=== PATIENT | male | born 1985 | race Caucasian/White ===

== ENCOUNTER 2018-02-04 12:00 | Observation (INO) | payer MEDICAID, SELFPAY ==
[2018-02-04 12:40] VITALS: BP 141/87; PULSE 56; RESP 16; TEMP 36.4; O2SAT 98
[2018-02-04 12:43] VITALS: BMI 25.4
[2018-02-04 12:44] VITALS: BMI 25.4
[2018-02-04 12:47] VITALS: BP 141/87; PULSE 56; RESP 16; TEMP 36.4
--- NOTE | 2018-02-04 12:59 | PCM.HP.STD ---
Problem List (1) Opiate withdrawal Status: Acute History of Present Illness Date of Admission: 02/04/18 Chief Complaint: abdominal cramps, diarrhea, restless legs. seeking treatment for heroin withdrawal. The patient is a 32 year old M who injects heroin. Last injection was at 4 PM on the . Since then, patient has been experiencing abdominal cramps, diarrhea, diaphoresis, restless legs. Patient presented Via [facility] for treatment for heroin withdrawal. Patient had an intake CINA score of 16. Patient being admitted to the [facility] medical stabilization program for acute opiate withdrawal. [] Past Medical History Allergies No Known Allergies Allergy (Verified 02/04/18 12:40) Home Medications: Ambulatory Orders Medication Instructions Recorded NK 02/04/18 Psychiatric History: No pertinent psych hx Lives: Alone Smoking Status: Never smoker Tobacco Use: Non-smoker Alcohol: None Drugs: Heroin - *Family History Paternal History Items: Heart Disease - at 38 from an [place]. Review of Systems Constitutional: Denies: Chills, Fever, Weight Change Eyes: Denies: Blurred vision, Double vision HEENT: Denies: Head Aches, Sinus Congestion, Sinus Drainage Cardiovascular: Denies: Chest Pain, Palpitations Respiratory: Denies: Cough, Shortness of breath at rest, Sputum production Gastrointestinal: Reports: Abdominal Pain, Diarrhea, Nausea Genitourinary: Denies: Dysuria Musculoskeletal: Denies: Joint Pain, Joint Tenderness Skin: Denies: Rash, Wounds Neurological: Denies: Numbness, Tingling, Focal weakness Psychiatric: Denies: Anxiety, Depression Endocrine: Denies: Change in Body Habitus, Heat/ Cold Intolerance Hematologic/ Lymphatic: Denies: Easy Bruising, Easy Bleeding, Hx of blood clot Comment: A 10 point review of systems were negative except as mentioned in the history of present illness and the other review of systems. VTE Information - Inpt Only VTE Present on Admission: No VTE Mechan Device Prophylaxis: None VTE Pharm Prophylaxis ordered?: No Patient Problems: Active and Suspected Problems Opiate withdrawal (Acute) - Physical Exam General: Alert, Cooperative, No apparent distress HEENT: Atraumatic, Normocephalic Oral: Moist Mucosa, No Gingival or Mucosal Lesions/ Ulcerations Neck: No Nodes, Thyroid Normal Size and Texture Lungs: Clear to auscultation, Normal air movement, No rhonchi, No wheeze Cardiovascular: Regular rate, Regular Rhythm, Normal S1, Normal S2, No murmurs Abdomen: Bowel Sounds Present, Soft, Non Tender, Non-Distended, No Hepato-splenomegaly Extremities: No edema, No Calf Tenderness Skin: No rashes, - - superficial wound Musculoskeletal: No Tenderness to Palpation of Joints or Extremities, No Muscle Wasting Psych/Mental Status: Normal Affect, Appropriate Vital Signs Temp Pulse Resp BP Pulse Ox 36.4 C L 56 L 16 141/87 H 98 02/04/18 12:47 02/04/18 12:47 02/04/18 12:47 02/04/18 12:47 02/04/18 12:40 Oxygen Delivery Method Room Air Weight: 82.735 kg Body Mass Index (BMI) 25.4 Assessment/Plan All Active Problems Opiate withdrawal (Acute) 1. acute heroin abuse intake CINA score 16 subutex taper additionally, other medications for other somatic complaints [facility] to facilitate outpt therapies. Estimated discharge will be 02/07 Code Visit Inpatient E&M: 96731 Init Hosp L2
--- NOTE | 2018-02-04 13:04 | HP.PCM_ITS ---
Problem List (1) Opiate withdrawal Status: Acute History of Present Illness Date of Admission: 02/04/18 Chief Complaint: abdominal cramps, diarrhea, restless legs. seeking treatment for heroin withdrawal. The patient is a 32 year old M who injects heroin. Last injection was at 4 PM on the . Since then, patient has been experiencing abdominal cramps, diarrhea, diaphoresis, restless legs. Patient presented Via [facility] for treatment for heroin withdrawal. Patient had an intake CINA score of 16. Patient being admitted to the [facility] medical stabilization program for acute opiate withdrawal. [] Past Medical History Allergies No Known Allergies Allergy (Verified 02/04/18 12:40) Home Medications: Ambulatory Orders Medication Instructions Recorded NK 02/04/18 Psychiatric History: No pertinent psych hx Lives: Alone Smoking Status: Never smoker Tobacco Use: Non-smoker Alcohol: None Drugs: Heroin - *Family History Paternal History Items: Heart Disease - at 38 from an [place]. Review of Systems Constitutional: Denies: Chills, Fever, Weight Change Eyes: Denies: Blurred vision, Double vision HEENT: Denies: Head Aches, Sinus Congestion, Sinus Drainage Cardiovascular: Denies: Chest Pain, Palpitations Respiratory: Denies: Cough, Shortness of breath at rest, Sputum production Gastrointestinal: Reports: Abdominal Pain, Diarrhea, Nausea Genitourinary: Denies: Dysuria Musculoskeletal: Denies: Joint Pain, Joint Tenderness Skin: Denies: Rash, Wounds Neurological: Denies: Numbness, Tingling, Focal weakness Psychiatric: Denies: Anxiety, Depression Endocrine: Denies: Change in Body Habitus, Heat/ Cold Intolerance Hematologic/ Lymphatic: Denies: Easy Bruising, Easy Bleeding, Hx of blood clot Comment: A 10 point review of systems were negative except as mentioned in the history of present illness and the other review of systems. VTE Information - Inpt Only VTE Present on Admission: No VTE Mechan Device Prophylaxis: None VTE Pharm Prophylaxis ordered?: No Patient Problems: Active and Suspected Problems Opiate withdrawal (Acute) - Physical Exam General: Alert, Cooperative, No apparent distress HEENT: Atraumatic, Normocephalic Oral: Moist Mucosa, No Gingival or Mucosal Lesions/ Ulcerations Neck: No Nodes, Thyroid Normal Size and Texture Lungs: Clear to auscultation, Normal air movement, No rhonchi, No wheeze Cardiovascular: Regular rate, Regular Rhythm, Normal S1, Normal S2, No murmurs Abdomen: Bowel Sounds Present, Soft, Non Tender, Non-Distended, No Hepato- splenomegaly Extremities: No edema, No Calf Tenderness Skin: No rashes, - - superficial wound Musculoskeletal: No Tenderness to Palpation of Joints or Extremities, No Muscle Wasting Psych/Mental Status: Normal Affect, Appropriate Vital Signs Temp Pulse Resp BP Pulse Ox 36.4 C L 56 L 16 141/87 H 98 02/04/18 12:47 02/04/18 12:47 02/04/18 12:47 02/04/18 12:47 02/04/18 12:40 Oxygen Delivery Method Room Air Weight: 82.735 kg Body Mass Index (BMI) 25.4 Assessment/Plan All Active Problems Opiate withdrawal (Acute) 1. acute heroin abuse * intake CINA score 16 * subutex taper * additionally, other medications for other somatic complaints * [facility] to facilitate outpt therapies. * Estimated discharge will be 02/07 Code Visit Inpatient E&M: 17982 Init Hosp L2
[2018-02-04 13:24] LABS: Absolute Lymphocyte Count 1.68 X10^3/ul (0.83-4.51); Absolute Neutrophil Count 3.3 X10^3/uL (2.0-7.7); Eosinophil# 0.21 X10^3/uL; Eosinophils% 3.8 % (0-5); Hematocrit 40.9 % (40-54); Hemoglobin 13.4 g/dl (13.0-16.5); Lymphocyte # 1.68 X10^3/ul (4.0); Lymphocyte % 30.4 % (19-41); Mean Corp Hgb Conc 32.8 g/gl (32-36); Mean Corpuscular Hgb 30.8 pg (27.0-32.0); Mean Platelet Vol. 10.3 fl (6.2-12.0); Monocyte# 0.33 X10^3/uL; Neutrophil % 59.8 % (47-70); Platelet Count 250 K/mm3 (150-450); RBC Distribution Width CV 13.3 % (11.6-14.6); Red Blood Count 4.35 M/mm3 (4.6-6.2); White Blood Count 5.5 K/mm3 (4.4-11.0)
[2018-02-04 13:25] LABS: POSITIVE DIFFERENTIAL NO; POSITIVE MORPHOLOGY NO
[2018-02-04] MEDS: Buprenorphine HCl 2 MG TAB.SUBL SL ×2 (13:35→21:27)
[2018-02-04] MEDS: Dicyclomine 10 MG Capsule 20 MG PO (13:35)
[2018-02-04] MEDS: cloNIDine HCl 0.1 MG Tablet PO (13:35)
[2018-02-04 13:39] LABS: ALB/GLOB Ratio 0.9 RATIO (0.9-2.4); AST(SGOT) 19 U/L (15-37); Alanine Aminotransfer ALT/SGPT 24 U/L (16-61); Albumin, Serum 3.3 g/dL (3.2-5.0); Alkaline Phosphatase 101 U/L (45-117); Anion Gap 7 (5-15); BUN 13 mg/dL (7-18); BUN/Creat Ratio 13.1 RATIO (10-20); Calcium,Total 8.3 mg/dL (8.5-10.1); Chloride 103 mmol/L (98-107); Creatinine, Serum 0.99 mg/dL (0.70-1.30); EST Glomerular Filtration Rate 92 mL/min (>60); Est Glom Filt Rate - Afr Amer 111 mL/min (>60); Estimated Creatinine Clearance 111.98 ml/min; Globulin 3.6 g/dL (2.2-4.2); Glucose 116 mg/dL (74-106); Protein, Total 6.9 g/dL (6.4-8.2); Sodium Level 137 mmol/L (136-145)
[2018-02-04 13:55] LABS: Amphetamine Urine VISTA POSITIVE (<1000 ng/mL); Barbiturate Urine VISTA NEGATIVE (< 200 ng/mL); Benzodiazepine Urine VISTA POSITIVE (< 200 ng/mL); Cocaine Urine VISTA NEGATIVE (< 300 ng/mL); Ecstacy Urine VISTA NEGATIVE (< 500 ng/mL); Methadone Urine VISTA NEGATIVE (< 300 ng/mL); PCP Urine VISTA NEGATIVE (< 25 ng/mL); THC Urine VISTA NEGATIVE (< 50 ng/mL); Vista UDS pH Range 5
[2018-02-04] MEDS: Pramipexole Di-HCl 0.25 MG Tablet PO (16:09)
[2018-02-04] MEDS: Ibuprofen 600 MG Tablet PO (16:12)
[2018-02-04 16:15] VITALS: BP 123/78; PULSE 63; RESP 16; TEMP 36.3
[2018-02-04 21:23] VITALS: BP 126/81; PULSE 67; RESP 16; TEMP 36.6
[2018-02-04] MEDS: Methocarbamol 750 MG Tablet PO (21:27)
[2018-02-04] MEDS: traZODone 50 MG Tablet PO (21:27)
[2018-02-05 01:30] VITALS: BP 127/73; PULSE 60; RESP 16; TEMP 36.4
[2018-02-05 05:48] VITALS: BP 120/80; PULSE 70; RESP 18; TEMP 36.4
[2018-02-05] MEDS: Dicyclomine 10 MG Capsule 20 MG PO (05:49)
[2018-02-05] MEDS: Buprenorphine HCl 2 MG TAB.SUBL SL ×3 (05:49→21:56)
--- NOTE | 2018-02-05 08:51 | PN_ITS ---
Patient Problems: Active and Suspected Problems Opiate withdrawal (Acute) Subjective: Restless leg exam Julian cramps are improved. Denies any rhinitis. Vitals/I&O's: Vital Signs Temp Pulse Resp BP Pulse Ox 36.4 C L 70 18 120/80 98 02/05/18 05:48 02/05/18 05:48 02/05/18 05:48 02/05/18 05:48 02/04/18 12:40 Oxygen Delivery Method Room Air Weight: 82.735 kg Body Mass Index (BMI) 25.4 Intake and Output for Last 24 Hours 02/03/18 02/04/18 02/05/18 23:59 23:59 23:59 Intake Total 630 / 630 100 / 100 Balance 630 / 630 100 / 100 General: Alert, Cooperative, No apparent distress HEENT: Atraumatic, Normocephalic Oral: Moist Mucosa, No Gingival or Mucosal Lesions/ Ulcerations Neck: No Nodes, Thyroid Normal Size and Texture Lungs: Clear to auscultation, Normal air movement, No rhonchi, No wheeze Cardiovascular: Regular rate, Regular Rhythm, Normal S1, Normal S2, No murmurs Abdomen: Bowel Sounds Present, Soft, Non Tender, Non-Distended, No Hepato- splenomegaly Extremities: No edema, No Calf Tenderness Musculoskeletal: No Tenderness to Palpation of Joints or Extremities, No Muscle Wasting Psych/Mental Status: Normal Affect, Appropriate Laboratory Results 02/04/18 13:16: WBC 5.5, RBC 4.35 L, Hgb 13.4, Hct 40.9, MCV 94.0, MCH 30.8, MCHC 32.8, RDW 13.3, RDW Differential 46.0 H, Plt Count 250, MPV 10.3, Immature Gran % (Auto) 0.000, Neut % (Auto) 59.8, Lymph % (Auto) 30.4, [place] % (Auto) 6.0, Eos % (Auto) 3.8, Baso % (Auto) 0.0, Absolute Neuts (auto) 3.3, Absolute Lymphs (auto) 1.68, Total Counted Not Reportable 02/04/18 13:16: Sodium 137, Potassium 4.0, Chloride 103, Carbon Dioxide 27.0, Anion Gap 7, BUN 13, Creatinine 0.99, Estim Creat Clear Calc 111.98, Est GFR (MDRD) Af Amer 111, Est GFR (MDRD) Non-Af 92, BUN/Creatinine Ratio 13.1, Glucose 116 H, Calcium 8.3 L, Total Bilirubin 0.30, AST 19, ALT 24, Alkaline Phosphatase 101, Total Protein 6.9, Albumin 3.3, Globulin 3.6, Albumin/Globulin Ratio 0.9 02/04/18 13:35: Urine Opiates Screen POSITIVE H, Urine Methadone Screen NEGATIVE, Ur Barbiturates Screen NEGATIVE, Ur Phencyclidine Scrn NEGATIVE, Ur Amphetamines Screen POSITIVE H, U Methamphetamin-MDMA NEGATIVE, U Benzodiazepines Scrn POSITIVE H, Urine Cocaine Screen NEGATIVE, U Cannabinoids S creen NEGATIVE, Ur Drug Screen Comment Current Medications Acetaminophen (Tylenol) 500 mg PO Q4H PRN PRN PRN Reason: Temp > 100.4 F Buprenorphine HCl (Buprenorphine Hcl) 4 mg SL Q8H SAQIB; Taper Stop: 02/07/18 17:29 Last Admin: 02/05/18 05:49 Dose: 4 mg Clonidine (Catapres) 0.1 mg PO Q2H PRN PRN PRN Reason: Hot/Cold Sweats or Anxiety Last Admin: 02/04/18 13:35 Dose: 0.1 mg Dicyclomine HCl (Bentyl) 20 mg PO Q6H PRN PRN PRN Reason: Abdomnial Discomfort Last Admin: 02/05/18 05:49 Dose: 20 mg Hydroxyzine Pamoate (Vistaril Pamoate Capsule) 50 mg PO Q6H PRN PRN PRN Reason: Mild Anxiety Ibuprofen (Motrin) 600 mg PO Q8H PRN PRN PRN Reason: Mild-Moderate Pain (1-5/10) Last Admin: 02/04/18 16:12 Dose: 600 mg Loperamide HCl (Imodium) 2 - 4 mg PO UD PRN PRN Reason: LOOSE STOOLS Methocarbamol (Methocarbamol) 750 mg PO Q6H PRN PRN PRN Reason: Muscle Aches Last Admin: 02/04/18 21:27 Dose: 750 mg Pramipexole Dihydrochloride (Mirapex) 0.25 mg PO Q12H PRN PRN PRN Reason: Restless Legs Last Admin: 02/04/18 16:09 Dose: 0.25 mg Trazodone HCl (Desyrel) 50 mg PO QHS [facility] Last Admin: 02/04/18 21:27 Dose: 50 mg Medical Necessity - Tobacco Use Smoking Status: Never smoker Tobacco Use: Non-smoker Assessment/Plan All Active Problems Opiate withdrawal (Acute) 1. acute heroin abuse * Improving * intake CINA score 16 * subutex taper * additionally, other medications for other somatic complaints * [facility] to facilitate outpt therapies. * Estimated discharge will be 02/07 * Patient to attend outpatient services beginning on the . Code Visit Inpatient E&M: 81742 Subs Hosp L2
[2018-02-05] MEDS: Pramipexole Di-HCl 0.25 MG Tablet PO (09:23)
[2018-02-05 09:29] VITALS: BP 122/82; PULSE 80; RESP 14; TEMP 36.4
[2018-02-05 14:00] VITALS: BP 136/81; PULSE 65; RESP 16; TEMP 36.6
--- NOTE | 2018-02-05 15:29 | CHAPLAIN ---
Type of Pastoral Visit _x__ Initial Visit ___ Follow-up Visit ___ On-call Visit ___ General Patient Visit ___ Spiritual Assessment ___ Family Conference ___ Bereavement ___ Rapid Response ___ Code Blue ___ Other (describe below) Pastoral Care Referral From _x__ Patient ___ Family ___ Nurse ___ Physician ___ Dispatcher Relay ___ Clearing Hand ___ Other (describe below) Sacrament/Intervention _x__ Active listening ___ Anointing ___ Latter-Day ___ Bereavement ___ Communion ___ Felisha exploration ___ ___ Life review _x__ Prayer ___ Reconciliation ___ Sacrament of Sick ___ Supportive presence ___ Wedding ___ Other (describe below) Pastoral Comments patient offered support; pt gives some life history and plans on how he will continue in recovery; pt welcomes prayer;
[2018-02-05 17:40] VITALS: BP 136/81; PULSE 71; RESP 18; TEMP 36.8
[2018-02-05] MEDS: traZODone 50 MG Tablet PO (21:56)
[2018-02-05 22:00] VITALS: BP 128/91; PULSE 76; RESP 18; TEMP 36.8
[2018-02-06 05:47] VITALS: BP 118/77; PULSE 67; RESP 16; TEMP 36.7
[2018-02-06] MEDS: Buprenorphine HCl 2 MG TAB.SUBL SL ×2 (05:48→17:59)
--- NOTE | 2018-02-06 09:45 | PN_ITS ---
Patient Problems: Active and Suspected Problems Opiate withdrawal (Acute) Subjective: Feeling well. No Restless legs. No abdominal cramps. Vitals/I&O's: Vital Signs Temp Pulse Resp BP Pulse Ox 36.7 C 67 16 118/77 98 02/06/18 05:47 02/06/18 05:47 02/06/18 05:47 02/06/18 05:47 02/04/18 12:40 Oxygen Delivery Method Room Air Weight: 82.735 kg Body Mass Index (BMI) 25.4 Intake and Output for Last 24 Hours 02/04/18 02/05/18 02/06/18 23:59 23:59 23:59 Intake Total 630 / 630 1100 / 1100 230 / 230 Balance 630 / 630 1100 / 1100 230 / 230 General: Alert, No apparent distress HEENT: Atraumatic, Normocephalic Oral: Moist Mucosa, No Gingival or Mucosal Lesions/ Ulcerations Neck: No Nodes, Thyroid Normal Size and Texture Lungs: Clear to auscultation, Normal air movement, No rhonchi, No wheeze Cardiovascular: Regular rate, Regular Rhythm, Normal S1, Normal S2 Abdomen: Bowel Sounds Present, Soft, Non Tender, Non-Distended Extremities: No edema, No Calf Tenderness Skin: No rashes, No breakdown Current Medications Acetaminophen (Tylenol) 500 mg PO Q4H PRN PRN PRN Reason: Temp > 100.4 F Buprenorphine HCl (Buprenorphine Hcl) 2 mg SL Q12H SAQIB; Taper Stop: 02/07/18 17:29 Last Admin: 02/06/18 05:48 Dose: 2 mg Clonidine (Catapres) 0.1 mg PO Q2H PRN PRN PRN Reason: Hot/Cold Sweats or Anxiety Last Admin: 02/04/18 13:35 Dose: 0.1 mg Dicyclomine HCl (Bentyl) 20 mg PO Q6H PRN PRN PRN Reason: Abdomnial Discomfort Last Admin: 02/05/18 05:49 Dose: 20 mg Hydroxyzine Pamoate (Vistaril Pamoate Capsule) 50 mg PO Q6H PRN PRN PRN Reason: Mild Anxiety Ibuprofen (Motrin) 600 mg PO Q8H PRN PRN PRN Reason: Mild-Moderate Pain (1-5/10) Last Admin: 02/04/18 16:12 Dose: 600 mg Loperamide HCl (Imodium) 2 - 4 mg PO UD PRN PRN Reason: LOOSE STOOLS Methocarbamol (Methocarbamol) 750 mg PO Q6H PRN PRN PRN Reason: Muscle Aches Last Admin: 02/04/18 21:27 Dose: 750 mg Pramipexole Dihydrochloride (Mirapex) 0.25 mg PO Q12H PRN PRN PRN Reason: Restless Legs Last Admin: 02/05/18 09:23 Dose: 0.25 mg Trazodone HCl (Desyrel) 50 mg PO QHS SAQIB Last Admin: 02/05/18 21:56 Dose: 50 mg Medical Necessity - Tobacco Use Smoking Status: Never smoker Tobacco Use: Non-smoker Assessment/Plan All Active Problems Opiate withdrawal (Acute) 1. acute heroin abuse * Improving * intake CINA score 16 * subutex taper * additionally, other medications for other somatic complaints * [facility] to facilitate outpt therapies. * Estimated discharge will be 02/07 * Patient to attend outpatient services beginning on the . Code Visit Inpatient E&M: 78133 Subs Hosp L2
[2018-02-06 10:00] VITALS: BP 136/82; PULSE 68; RESP 18; TEMP 36.7
[2018-02-06 18:00] VITALS: BP 114/90; PULSE 84; RESP 16; TEMP 36.8
[2018-02-06 21:36] VITALS: BP 129/85; PULSE 73; RESP 18; TEMP 36.7
[2018-02-06] MEDS: traZODone 50 MG Tablet PO (21:41)
[2018-02-07 05:55] VITALS: BP 130/83; PULSE 70; RESP 16; TEMP 36.8
[2018-02-07] MEDS: Buprenorphine HCl 2 MG TAB.SUBL SL (05:57)
[2018-02-07 07:54] VITALS: BP 156/87; PULSE 74; RESP 18; TEMP 36.8; O2SAT 98
--- NOTE | 2018-02-07 07:54 | DCINST_ITS ---
- Discharge Diagnoses Current Active Problems: Current Active and Chronic Problems Opiate withdrawal (Acute) You will use the following diet at home:: No restrictions Your food should be the consistency of: Regular Your liquids should be the consistency of: Regular/Thin Discharge Activity: Return to Normal Activity Allergies/Adverse Reactions: Allergies No Known Allergies Allergy (Verified 02/04/18 12:40) Medications to take at Discharge Acetaminophen [Tylenol] 500 mg PO Q4H PRN PRN tablet 02/07/18 Primary Care Physician: Care Physician,No Primary [Primary Care Provider] - Test Results: Test results from this visit will be discussed in further detail at your follow- up appointment, if applicable. Proposed Discharge Date: 02/07/18
--- NOTE | 2018-02-07 07:54 | PCM.DC.SUM ---
Discharge Date and Diagnosis - Problem List Patient Problems: Active and Suspected Problems Opiate withdrawal (Acute) Date of Admission: 02/04/18 Date of Discharge: 02/07/18 - Primary Discharge Diagnosis Active and Suspected Problems Opiate withdrawal (Acute) Hospital Course and Treatment Operations: None Procedures: None Summary of Care Provided: The patient is a 32 year old M presents through [facility] for acute opiate withdrawal. Patient injects heroin. Patient was started on Subutex taper. Patient was additionally started on additional agents to help with other somatic complaints. Patient's course was uncomplicated and steadily improved. Patient has completed his 3 total days of the taper and will be discharged to home in stable condition. Patient has an appointment for today to complete his next phase of treatment. [] Patient Problems: Active and Suspected Problems Opiate withdrawal (Acute) - Physical Exam General: Alert, No apparent distress HEENT: Atraumatic, Normocephalic Psych/Mental Status: Normal Affect, Appropriate Vital Signs Temp Pulse Resp BP Pulse Ox 36.8 C 70 16 130/83 H 98 02/07/18 05:55 02/07/18 05:55 02/07/18 05:55 02/07/18 05:55 02/04/18 12:40 Oxygen Delivery Method Room Air Weight: 82.735 kg Body Mass Index (BMI) 25.4 Intake and Output for Last 24 Hours 02/05/18 02/06/18 02/07/18 23:59 23:59 23:59 Intake Total 1100 / 1100 1050 / 1050 337 / 337 Balance 1100 / 1100 1050 / 1050 337 / 337 Discharge Diet: No Restrictions Discharge Activity: Return to Normal Activity Home Medications: Medications to take at Discharge Acetaminophen [Tylenol] 500 mg PO Q4H PRN PRN tablet 02/07/18 Primary Care Physician: Care Physician,No Primary [Primary Care Provider] - Disposition: Home Minutes spent on discharge:: 20 Patient Condition:: Good Medical Necessity - Tobacco Use Smoking Status: Never smoker Tobacco Use: Non-smoker Meaningful Use Info Meaningful Use Diagnoses (Choose all that apply): None applicable Code Visit Inpatient E&M: 10413 Disch Hosp
== END 2018-02-07 08:00 | disposition home or self-care (01) | DRG 773 ==
DX: F11.23 Opioid dependence with withdrawal (principal)
CPT/HCPCS: 80053; 80307; 85025; 99218; G0378; G0379